=== PATIENT | male | born 1975 | race Caucasian/White ===

== ENCOUNTER 2017-06-16 20:40 | Emergency (ER) | payer MEDICAID ==
[~2017-06-16] VITALS: Ht 175.3 cm; Wt 89.5 kg
[~2017-06-16 20:40] MED LIST: ALBU18HF INHALATION; ALBU8.5H3 INH; AZIT250T94 PO; D-ME473S18 PO; PRED20TA PO; UDPVCC PO
[2017-06-16 20:59] VITALS: Ht 175.3 cm; Wt 89.5 kg
[2017-06-16] MEDS ORDERED: PANT40TA3 PO (21:47)
--- NOTE | 2017-06-17 01:41 | ERD ---
ER Documentation Chief Complaint Date/Time DATE: 06/17/17 TIME: 01:39 Chief Complaint contaminated heroine use an hr ago, blurry vision, shaky, altered HPI Patient is a 41-year-old male with no medical problems who presents after using heroin and methamphetamines. He is said that he has been using for the past few days. He said that he is having "bad acid reflux" for the past few days as well. He is trying to drink milk. He felt dizzy and hot and felt "fuzzy". Upon review of old medical records he has visits to 2 separate emergency departments. He does not currently have a primary doctor. ROS All systems reviewed and are negative except as per history of present illness. Medications Home Meds Active Scripts Pantoprazole* (Protonix*) 40 Mg Tablet., 40 MG PO DAILY, #20 TAB Prov:DAGMAR MCDONNELL MD 06/16/17 Dextromethorphan Hb-Promethazine Hcl (Promethazine DM Syrup) 473 Ml Syrup, 5 ML PO Q6H Y for COUGH, #4 OZ Prov:ASHLEY GONZALEZ PA-C 07/18/16 Prednisone* (Prednisone*) 20 Mg Tab, 40 MG PO DAILY for 4 Days, TAB Prov:ASHLEY GONZALEZ PA-C 07/18/16 Albuterol Sulfate* (Proair HFA*) 8.5 Gm Hfa.aer.ad, 2 PUFF INH Q4, #1 INHALER Prov:ASHLEY GONZALEZ PA-C 07/18/16 Albuterol Sulfate* (Ventolin HFA*) 18 Gm Hfa.aer.ad, 2 PUFF INHALATION Q4H, #1 INHALER Prov:KENZIE HOUSER 04/05/16 Prednisone* (Prednisone*) 20 Mg Tab, 40 MG PO DAILY for 4 Days, TAB Prov:KENZIE HOUSER 04/05/16 Azithromycin* (Zithromax*) 250 Mg Tablet, 250 MG PO .SOCORRO DIRECTED, #6 TAB TAKE 500 MG (2 TABS) THE FIRST DAY THEN 250 MG (1 TAB) DAYS 2-5 Prov:KENZIE HOUSER 04/05/16 Reported Medications Phenylephrine Bci-Txloetb-Dpzbtsphjyck* (Promethazine VC Codeine* Syrup) 120 Ml Syrup, 5 ML PO Q6 Y for COUGH, ML 04/05/16 Allergies Allergies: Coded Allergies: No Known Allergy (Unverified , 08/10/16) PMhx/Soc History of Surgery: No Anesthesia Reaction: No Hx Neurological Disorder: No Hx Respiratory Disorders: Yes (asthma) Hx Cardiac Disorders: No Hx Psychiatric Problems: No Hx Miscellaneous Medical Probl: No Hx Alcohol Use: Yes Hx Substance Use: Yes (HEROIN, CRYSTAL METH) Hx Tobacco Use: Yes Smoking Status: Current every day smoker FmHx Family History: diabetes Physical Exam Vitals Vital Signs Date Time Temp Pulse Resp B/P Pulse Ox O2 Delivery O2 Flow Rate FiO2 06/16/17 20:59 98.0 89 20 135/74 97 Physical Exam Const: No acute distress Head: Atraumatic Eyes: Normal Conjunctiva ENT: Normal External Ears, Nose and Mouth. Neck: Full range of motion..~ No meningismus. Resp: Clear to auscultation bilaterally Cardio: Regular rate and rhythm, no murmurs Abd: Soft, non tender, non distended. Normal bowel sounds Skin: No petechiae or rashes Back: No midline or flank tenderness Ext: No cyanosis, or edema Neur: Awake and alert Psych: Normal Mood and Affect Procedures/MDM Smoking Cessation Therapy: Pt. was lectured for greater than 3 minutes on the health risks of continued smoking and the benefits of cessation. 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 His biggest complaint is acid reflux. I will give him a prescription for Protonix. I told him to stop using illicit drugs as well as this would probably help with his other symptoms of feeling dizzy and hot. The patient will need to follow-up with a primary doctor the local clinics as he does not currently have a primary doctor. He can return sooner for any worsening symptoms. Departure Diagnosis: Primary Impression: Reflux gastritis Additional Impression: Drug use Condition: Fair Patient Instructions: Gastroesophageal Reflux Disease (GERD), Drug Abuse Referrals: COMMUNITY CLINICS YOU HAVE RECEIVED A MEDICAL SCREENING EXAM AND THE RESULTS INDICATE THAT YOU DO NOT HAVE A CONDITION THAT REQUIRES URGENT TREATMENT IN THE EMERGENCY DEPARTMENT. FURTHER EVALUATION AND TREATMENT OF YOUR CONDITION CAN WAIT UNTIL YOU ARE SEEN IN YOUR DOCTORS OFFICE WITHIN THE NEXT 1-2 DAYS. IT IS YOUR RESPONSIBILITY TO MAKE AN APPOINTMENT FOR FOLOW-UP CARE. IF YOU HAVE A PRIMARY DOCTOR --you should call your primary doctor and schedule an appointment IF YOU DO NOT HAVE A PRIMARY DOCTOR YOU CAN CALL OUR PHYSICIAN REFERRAL HOTLINE AT IF YOU CAN NOT AFFORD TO SEE A PHYSICIAN YOU CAN CHOSE FROM THE FOLLOWING [facility] CL[facility] [address] [facility] [address] [facility] [facility] [address] [facility] [address]. [facility] [address] [facility] [facility]. [address] Additional Instructions: Call your primary care doctor TOMORROW for an appointment during the next 1-2 days.See the doctor sooner or return here if your condition worsens before your appointment time. DAGMAR MCDONNELL MD Jun 17, 2017 01:41
== END 2017-06-16 22:15 | disposition home or self-care (01) ==
LOC: E/R 20:40
DX: K21.9 Gastro-esophageal reflux disease without esophagitis (principal); F15.10 Other stimulant abuse, uncomplicated; J45.909 Unspecified asthma, uncomplicated; F17.210 Nicotine dependence, cigarettes, uncomplicated
CPT/HCPCS: 99283

== ENCOUNTER 2017-10-24 00:49 | Emergency (ER) | END 2017-10-24 08:16 | disposition home or self-care (01) ==

== ENCOUNTER 2017-12-29 23:58 | Emergency (ER) | END 2017-12-30 06:00 | disposition left against medical advice (07) ==